=== PATIENT | male | born 1985 | race African-American/Black ===

== ENCOUNTER 2018-12-06 23:27 | Emergency (ER) | payer BC ==
[2018-12-06] MEDS ORDERED: Sodium Chloride 0.9% 1,000 ML IV SCH (23:45)
[2018-12-06] MEDS ORDERED: Ondansetron 4 MG/2 ML SDV IVPUSH ONE (23:47)
--- NOTE | 2018-12-06 23:56 | EDM.PDOC ---
ED HPI GENERAL MEDICAL PROBLEM - General Chief Complaint: General Stated Complaint: PT HAS STOMACH PAINS Time Seen by Provider: 12/06/18 23:53 - History of Present Illness INITIAL COMMENTS - FREE TEXT/NARRATIVE: HISTORY AND PHYSICAL: History of present illness: Patient 33-year-old black male history of carpal tunnel syndrome who presents with chief complaint of nausea vomiting and states he has taken approximately 49 Tylenol today in an effort to control his pain Review of systems: As per history of present illness and below otherwise all systems reviewed and negative. Past medical history: As per history of present illness and as reviewed below otherwise noncontributory. Surgical history: As per history of present illness and as reviewed below otherwise noncontributory. Social history: No reported history of drug or alcohol abuse. Family history: As per history of present illness and as reviewed below otherwise noncontributory. Physical exam: HEENT: Atraumatic, normocephalic, pupils reactive, negative for conjunctival pallor or scleral icterus, mucous membranes moist, throat clear, neck supple, nontender, trachea midline. Lungs: Clear to auscultation, breath sounds equal bilaterally, chest nontender. Heart: S1S2, regular, negative for clicks, rubs, or JVD. Abdomen: Soft, nondistended, nontender. Negative for masses or hepatosplenomegaly. Negative for costovertebral tenderness. Pelvis: Stable nontender. Genitourinary: Deferred. Rectal: Deferred. Extremities: Atraumatic, negative for cords or calf pain. Neurovascular unremarkable. Neuro: Awake, alert, oriented. Cranial nerves II through XII unremarkable. Cerebellum unremarkable. Motor and sensory unremarkable throughout. Exam nonfocal. Diagnostics: CBC CMP PT/INR aspirin Tylenol level poison control consult Therapeutics: Saline 1 L bolus Impression: #1 gastritis #2 Tylenol overdose #3 history carpal tunnel syndrome Definitive disposition and diagnosis as appropriate pending reevaluation and review of above. bilateral hand Pain Score (Numeric/FACES): 10 - Related Data Home Meds: Home Meds ALPRAZolam [Xanax] 12/06/18 [History] Gabapentin [Neurontin] 12/06/18 [History] Past Medical History - Past Health History Medical/Surgical History: Denies Medical/Surgical History Cardiovascular History: Reports: None Respiratory History: Reports: None Gastrointestinal History: Reports: None Genitourinary History: Reports: None Musculoskeletal History: Reports: None Neurological History: Reports: None Psychiatric History: Reports: None Endocrine/Metabolic History: Reports: None Dermatologic History: Reports: None Social & Family History - Family History Family Medical History: Noncontributory - Tobacco Use Smoking Status *Q: Never Smoker - Recreational Drug Use Recreational Drug Use: No ED ROS GENERAL - Review of Systems Review Of Systems: ROS reveals no pertinent complaints other than HPI. ED EXAM, GENERAL - Physical Exam Exam: See Below (Indication) Course - Vital Signs Last Recorded V/S: Last Vital Signs Temp 36.6 C 12/06/18 23:39 Pulse 90 12/06/18 23:39 Resp 20 12/06/18 23:39 BP 157/96 H 12/06/18 23:39 Pulse Ox 97 12/06/18 23:39 - Orders/Labs/Meds Orders: Active Orders 24 hr Category Date Time Status Sodium Chloride 0.9% [Normal Saline] 1,000 ml Med 12/06/18 23:45 Active IV ASDIRECTED Medication Orders Sodium Chloride (Normal Saline) 1,000 mls @ 999 mls/hr IV ASDIRECTED BEREKET Last Admin: 12/06/18 23:57 Dose: 999 mls/hr Labs: Laboratory Tests 12/06/18 12/06/18 12/06/18 Range/Units 23:55 23:55 23:55 WBC 8.67 (4.0-11.0) K/uL RBC 5.01 (4.50-5.90) M/uL Hgb 15.0 (13.0-17.0) g/dL Hct 43.9 (38.0-50.0) % MCV 87.6 (80.0-98.0) fL MCH 29.9 (27.0-32.0) pg MCHC 34.2 (31.0-37.0) g/dL RDW Std Deviation 43.2 (28.0-62.0) fl RDW Coeff of Leigh Ann 14 (11.0-15.0) % Plt Count 235 (150-400) K/uL MPV 11.80 (7.40-12.00) fL Neut % (Auto) 67.6 (48.0-80.0) % Lymph % (Auto) 25.7 (16.0-40.0) % Yell % (Auto) 6.0 (0.0-15.0) % Eos % (Auto) 0.5 (0.0-7.0) % Baso % (Auto) 0.2 (0.0-1.5) % Neut # (Auto) 5.9 H (1.4-5.7) K/uL Lymph # (Auto) 2.2 (0.6-2.4) K/uL Yell # (Auto) 0.5 (0.0-0.8) K/uL Eos # (Auto) 0.0 (0.0-0.7) K/uL Baso # (Auto) 0.0 (0.0-0.1) K/uL Nucleated RBC % 0.0 /100WBC Nucleated RBCs # 0 K/uL INR 0.98 Sodium 144 (136-148) mmol/L Potassium 4.1 (3.5-5.1) mmol/L Chloride 109 H (98-107) mmol/L Carbon Dioxide 23.4 (21.0-32.0) mmol/L BUN 13 (7.0-18.0) mg/dL Creatinine 1.0 (0.8-1.3) mg/dL Est Cr Clr Drug Dosing 98.23 mL/min Estimated GFR (MDRD) > 60.0 ml/min Glucose 131 H (74-106) mg/dL Calcium 8.4 L (8.5-10.1) mg/dL Total Bilirubin 0.5 (0.2-1.0) mg/dL AST 29 (15-37) IU/L ALT 40 (14-63) IU/L Alkaline Phosphatase 95 (46-116) U/L Total Protein 7.2 (6.4-8.2) g/dL Albumin 4.2 (3.4-5.0) g/dL Globulin 3.0 (2.6-4.0) g/dL Albumin/Globulin Ratio 1.4 (0.9-1.6) Salicylates 0.5 (0-20) mg/dL Acetaminophen 37.9 ug/mL Meds: Medications Generic Name Dose Route Start Last Admin Trade Name Freq PRN Reason Stop Dose Admin Sodium Chloride 1,000 mls @ 999 mls/hr 12/06/18 23:45 12/06/18 23:57 Normal Saline IV 999 mls/hr ASDIRECTED BEREKET Administration Discontinued Medications Generic Name Dose Route Start Last Admin Trade Name Emeka PRN Reason Stop Dose Admin Ondansetron HCl 4 mg 12/06/18 23:47 12/06/18 23:57 Zofran IVPUSH 12/06/18 23:48 4 mg ONETIME ONE Administration Departure - Departure Time of Disposition: 01:32 Disposition: DC/Tfer to Acute Hospital 02 Condition: Good Clinical Impression: Unintentional Tylenol overdose - Discharge Information Referrals: PCP,None [Primary Care Provider] - Forms: ED Department Discharge - My Orders Last 24 Hours: My Active Orders 12/06/18 23:45 Sodium Chloride 0.9% [Normal Saline] 1,000 ml IV ASDIRECTED - Assessment/Plan Last 24 Hours: My Active Orders 12/06/18 23:45 Sodium Chloride 0.9% [Normal Saline] 1,000 ml IV ASDIRECTED
[2018-12-07 00:34] LABS: CHLORIDE,CL 109 mmol/L (98-107); SODIUM,NA 144 mmol/L (136-148)
[2018-12-07 00:44] LABS: ACETAMINOPHEN 37.9 ug/mL
[2018-12-07] MEDS ORDERED: Acetylcysteine 20% 200 MG/ML 30 ML SDV IV ONE ×3 (01:39→01:46)
[2018-12-07] MEDS ORDERED: WATER IV ONE ×2 (02:15)
[2018-12-07] MEDS ORDERED: Acetylcysteine 15,000 MG in Dextrose 5% in Water 200 ML IV ONE ×2 (02:15)
[2018-12-07] MEDS ORDERED: DEXTROSE 5% IV ONE ×2 (02:15)
[2018-12-07] MEDS ORDERED: ACETYLCYSTEINE IV ONE ×2 (02:15)
[2018-12-07] MEDS ORDERED: Acetylcysteine 5,000 MG in Dextrose 5% in Water 500 ML IV ONE ×2 (03:30)
[2018-12-07] MEDS ORDERED: Acetylcysteine 10,000 MG in Dextrose 5% in Water 1,000 ML IV ONE ×2 (07:30)
== END 2018-12-07 02:45 ==
LOC: MW.ED 23:27
DX: T39.1X1A Poisoning by 4-Aminophenol derivatives, accidental (unintentional), initial encounter (principal); R11.2 Nausea with vomiting, unspecified; K29.70 Gastritis, unspecified, without bleeding
CPT/HCPCS: 36415; 80053; 85025; 85610; 96361; 96374; 96375; 99284; G0480; J0132; J2405; J7040; J7060; 99283